=== PATIENT | female | born 1995 | race Caucasian/White ===

== ENCOUNTER 2017-12-04 10:10 | Inpatient (IN) | payer OTHER, MEDICAID, SELFPAY ==
[2017-12-03 14:40] VITALS: BMI 49.8
[2017-12-03 16:09] LABS: Hematocrit 42.7 % (37-47); Hemoglobin 13.7 g/dl (12.0-15.0); Mean Corp Hgb Conc 32.1 g/gl (32-36); Mean Corpuscular Volume 87.1 fL (81-99); Mean Platelet Vol. 9.5 fl (6.2-12.0); Platelet Count 218 K/mm3 (150-450); RBC Distribution Width SD 44.1 fl (35.1-43.9); White Blood Count 10.9 K/mm3 (4.4-11.0)
[2017-12-03 16:12] LABS: Scan Indicated on CBC? Y/N NO
[2017-12-04] VITALS (18 sets, daily range): BP systolic 95–133; BP diastolic 50–82; PULSE 90–110; RESP 14–18; TEMP 36.2–36.8; O2SAT 95–100
[2017-12-04] MEDS: Lactated Ringers 1,000 ML 999 ML IV (10:45)
[2017-12-04] MEDS: 0.9% Saline Lock 10 ML Syringe IV (10:57)
[2017-12-04] MEDS: Lactated Ringers 1,000 ML 150 ML IV (11:32)
[2017-12-04] MEDS: Sodium Citrate/Citric Acid 30 ML UDC PO (12:10)
[2017-12-04] MEDS: Cefazolin 2 GM in 0.9% Normal Saline 100 ML IV (12:18)
--- NOTE | 2017-12-04 12:36 | PLAC_PTH ---
PATIENT: BEE KITCHEN LOC: [facility] U#:[id number] AGE/SX: 22/F ROOM: WP007 RE12/04/[address]: Dr. Dana Swanson MD : [id number] BED: 1 DIS: 12/07/2017 SPEC #: [id number] RECD: 12/04/17 14:37 STATUS: ARMANDO REAbiodun #: [id number] KATIE: 12/04/17 12:[address]: Dana Swanson DEPT: SURGICAL PATHOLOGY RECD BY: Cailin Tolbert ENTERED: 12/05/17 11:06 SP TYPE: PLACENTA OTHR DR: Judi Primary Care Phys Tissues: Placenta, NOS Procedures: Surgery Specimen Level V HEADER OPERATION: Primary section PRE-OP DIAGNOSIS: Placenta previa TISSUE SUBMITTED: Placenta MICROSCOPIC DIAGNOSIS Soni placenta (465 gm): Umbilical cord ? trivascular with no inflammation. Placental membranes ? not present Placental disc ? organizing intraparenchymal hemorrhage, intravascular congestion. AM:bryant 12/08/17 MICROSCOPIC DESCRIPTION Slides are reviewed. GROSS DESCRIPTION SPECIMEN: PLACENTA / CLINICAL INFORMATION: A. Weight: 2.673 kg B. Gestational Age: 37 weeks C. Sex: Female PLACENTAL WEIGHT (POST FIXATION): 465 gm PLACENTAL DIMENSIONS: 16 x 15 x 4 cm PLACENTAL SHAPE: Usual ovoid PLACENTAL WEIGHT FOR GESTATIONAL AGE: Within 10-99th percentile Received is a placenta with placental disc and umbilical cord. No membranes are noted. MEMBRANES ? No membranes are identified attached to the placenta or in the container. UMBILICAL CORD - Present A. Color: Caputo-bravo B. Insertion: Paracentral C. Length: 12 cm D. Diameter: 0.9 cm E. Number of vessels: Three F. Abnormalities: None PLACENTAL DISC - Present A. Color of surface: Caputo-bravo B. surface abnormalities: None C. Maternal cotyledons: Intact with minimal tears. The maternal surface appears to be partly disrupted. D. Attached retro placental clot: No clot E. Cut surface: Dark red and spongy F. Lesions: None G. Separate clot: Absent Membranes cannot be assessed due to disrupted nature of the maternal surface. Sections reveal a caputo-white lesion measuring 1.5 cm in greatest dimension. SECTIONS SUBMITTED: 1. Umbilical cord, end notched 2. Placenta disc, maternal and surface, lesion 3. Placental disc, and maternal surfaces 4. Placental disc, and maternal surfaces 5. Placental disc, and maternal surfaces, disrupted portion of the placenta SJ:bryant 12/05/17 TC:5 CPT: 60426
--- NOTE | 2017-12-04 13:14 | PCM.OB.CSR ---
Delivery Classification: Scheduled Final RAEGAN: 12/25/17 Final RAEGAN Source: US <20 weeks Gestational age: 37 Weeks and 0 Days Indications: Breech, previa Indications for : Breech, Placenta Previa Description of Procedure: The patient was taken to the operating room. She was prepped and draped in the dorsal supine position with a leftward tilt. A Pfannenstiel skin incision was made approximately 2 cm above the symphysis pubis and carried through to underlying layer fascia with the scalpel. The fascia was incised incised in the midline and extended laterally with the Nolen scissors. The fascia was dissected off the rectus muscles with blunt and sharp dissection. The rectus muscles were in the midline and the peritoneum was entered [bluntly]. The peritoneal incision was stretched and the bladder blade was placed. The uterine incision was made in a low transverse fashion with the scalpel and extended superiorly and inferiorly with blunt dissection. The fetus was noted to be vertex but unengaged. The lower uterine segment was not well-developed. When I entered the uterine cavity some blood began to return. I reached along the plane of the placenta to rupture the membranes for clear fluid and brought the vertex to the incision. However it was still not engaged even with fundal pressure. The vacuum was then placed and vacuum suction create a 550 mmHg I pulled once with 1 pop off the vacuum was replaced and pulled a second time with fundal pressure and the head delivered easily. The vacuum was removed. The remainder of the infant was delivered with gentle traction and fundal pressure in the standard fashion. The mouth and nares were bulb suctioned. The cord was clamped and cut as the was stimulated. Cord clamping was not delayed due to the placenta being fractured and starting to expel. The was handed off to the waiting nursing staff. The placenta was delivered with fundal massage and gentle traction in the standard fashion. The uterus was exteriorized and cleared of all clots and debris. [The cervix was dilated with a ring forcep]. The placental bed was very hemostatic and there is only a normal amount of blood loss from the uterus. The uterus was somewhat boggy but this resolved with IV Pitocin and fundal massage. Bleeding was average during the surgery. The uterine incision was closed with #1 Vicryl in a running locked fashion. A second layer of the same suture was used in an imbricating fashion and the incision was examined for hemostasis. The uterus was placed back into the peritoneal cavity and hemostasis was assured. The rectus muscles were examined and any bleeding was Bovie cauterized. [The parietal peritoneum was closed with 3-0 Vicryl suture in a running standard fashion. The rectus muscles were reapproximated with interrupted 0 Vicryl [id number] sutures]. The rectus fascia was examined and the bleeding was Bovie cauterized and the rectus fascia was closed with loop 1 PDS suture in a running standard fashion. The subcutaneous tissue was examining and any bleeding was Bovie cauterized. [The subcutaneous tissue was reapproximated with 3-0 Vicryl suture.] The skin was closed in a subcuticular fashion [by the OUTDOOR STUDIES DIRECTOR with me present in the labor and delivery suite]. All sponge, lap, and needle counts were correct. The patient was taken to her room for recovery in a stable condition. I Performed the entire procedure with assistance Amniotic Membrane Rupture Type: Artificial Amniotic Fluid Description: Clear Placenta Disposition: Sent to Pathology Drain: Kwon to straight drain Fluids Replaced: LR Cord Entanglement: None Cord Vessel Description: 3 Vessels Esitmated Blood Loss (ml): 600 Infant Gender: Female (1 minute): 8 (5 minute): 9 Delayed cord clamping: No Complications: None - Admit VTE Documentation VTE Present on Admission: No VTE Mechan Device Prophylaxis: SCD's VTE Pharm Prophylaxis ordered?: Yes
[2017-12-04] MEDS: Ketorolac 30 MG/ML Syringe IV ×2 (15:38→22:21)
[2017-12-04] MEDS: DiphenhydrAMINE 25 MG Capsule PO (15:38)
[2017-12-04] MEDS: Lactated Ringers 1,000 ML 100 ML IV (18:58)
[2017-12-05] VITALS (10 sets, daily range): BP systolic 117–140; BP diastolic 71–80; PULSE 92–105; RESP 16–18; TEMP 36.3–37.1; O2SAT 96–99
[2017-12-05] MEDS: Ketorolac 30 MG/ML Syringe IV ×4 (04:11→21:58)
[2017-12-05 04:36] LABS: Hematocrit 33.1 % (37-47); Hemoglobin 11.1 g/dl (12.0-15.0); Mean Corp Hgb Conc 33.5 g/gl (32-36); Mean Corpuscular Hgb 28.9 pg (27.0-32.0); Mean Corpuscular Volume 86.2 fL (81-99); Mean Platelet Vol. 8.6 fl (6.2-12.0); Platelet Count 212 K/mm3 (150-450); RBC Distribution Width CV 13.7 % (11.6-14.6); RBC Distribution Width SD 42.1 fl (35.1-43.9); Red Blood Count 3.84 M/mm3 (4.2-5.4); Scan Indicated on CBC? Y/N NO; White Blood Count 11.2 K/mm3 (4.4-11.0)
[2017-12-05] MEDS: Enoxaparin 40 MG/0.4 ML Syringe SC (06:02)
--- NOTE | 2017-12-05 08:42 | PCM.PN.OB ---
Subjective: pain well controlled, average lochia, no N/V - Physical Exam General: Alert, Cooperative, No apparent distress Abdomen: Soft, Non-Distended, Tender - appropriately, - - bandage clean, dry and intact Extremities: Edema - 1+ Vital Signs Temp Pulse Resp BP Pulse Ox 97.4 F L 102 H 16 120/71 97 12/05/17 04:00 12/05/17 06:00 12/05/17 06:00 12/05/17 04:00 12/05/17 06:00 Oxygen Delivery Method Room Air Weight: 138.5 kg Body Mass Index (BMI) 49.8 Intake and Output for Last 24 Hours 12/03/17 12/04/17 12/05/17 23:59 23:59 23:59 Intake Total 2400 / 2400 2467 / 2467 Output Total 950 / 950 1700 / 1700 Balance 1450 / 1450 767 / 767 Laboratory Tests Past 24 Hrs 12/05/17 04:25 WBC 11.2 H RBC 3.84 L Hgb 11.1 L Hct 33.1 L MCV 86.2 MCH 28.9 MCHC 33.5 RDW 13.7 RDW Differential 42.1 Plt Count 212 MPV 8.6 Assessment/Plan POD#1 doing well routine care
[2017-12-05] MEDS: 0.9% Saline Lock 10 ML Syringe IV ×3 (10:40→21:57)
[2017-12-05] MEDS: oxyCODONE 5 MG Tablet PO ×2 (15:40→20:55)
[2017-12-05] MEDS: Senna/Docusate Sodium 1 Tablet PO (15:41)
[2017-12-06 01:35] VITALS: BP 128/83; PULSE 88; RESP 16; TEMP 36.3; O2SAT 98
[2017-12-06] MEDS: Ketorolac 30 MG/ML Syringe IV (04:14)
[2017-12-06] MEDS: 0.9% Saline Lock 10 ML Syringe IV (04:15)
[2017-12-06] MEDS: Enoxaparin 40 MG/0.4 ML Syringe SC (06:45)
[2017-12-06 08:35] VITALS: BP 133/72; PULSE 92; RESP 16; TEMP 36.9; O2SAT 96
--- NOTE | 2017-12-06 09:22 | PCM.PN.OB ---
Subjective: Feels bowels gurgling, no BM - Physical Exam General: Alert, Oriented x3 Abdomen: Soft, Non Tender, Non-Distended - ;ffmid & below umb. incision - bandage c/d/i Extremities: No Calf Tenderness Vital Signs Temp Pulse Resp BP Pulse Ox 98.4 F 92 16 133/72 H 96 12/06/17 08:35 12/06/17 08:35 12/06/17 08:35 12/06/17 08:35 12/06/17 08:35 Oxygen Delivery Method Room Air Weight: 305 lb 5.443 oz Body Mass Index (BMI) 49.8 Intake and Output for Last 24 Hours 12/04/17 12/05/17 12/06/17 23:59 23:59 23:59 Intake Total 2400 / 2400 2467 / 2467 Output Total 950 / 950 2950 / 2950 Balance 1450 / 1450 -483 / -483 Assessment/Plan POD#2 Routine care Miralax for constipation
[2017-12-06] MEDS: Polyethylene Glycol 3350 17 GM PACKET PO (10:06)
[2017-12-06] MEDS: Ibuprofen 600 MG Tablet PO ×2 (10:26→16:57)
[2017-12-06] MEDS: oxyCODONE 5 MG Tablet PO ×3 (10:27→19:14)
[2017-12-06 13:00] VITALS: BP 120/81; PULSE 109; RESP 18; TEMP 37.1; O2SAT 94
[2017-12-06] MEDS: Senna/Docusate Sodium 1 Tablet PO (19:15)
[2017-12-06 20:40] VITALS: BP 139/92; PULSE 92; RESP 18; TEMP 36.8; O2SAT 99
[2017-12-07] MEDS: oxyCODONE 5 MG Tablet PO ×5 (02:33→23:35)
[2017-12-07 02:40] VITALS: BP 132/84; PULSE 94; RESP 18; TEMP 36.1; O2SAT 97
[2017-12-07] MEDS: Enoxaparin 40 MG/0.4 ML Syringe SC (05:56)
[2017-12-07] MEDS: Ibuprofen 600 MG Tablet PO ×3 (05:56→20:12)
[2017-12-07 08:40] VITALS: BP 128/81; PULSE 84; RESP 16; TEMP 36.9; O2SAT 99
--- NOTE | 2017-12-07 09:35 | PCM.PN.OB ---
Subjective: No complaints - Physical Exam General: Alert, Oriented x3 Abdomen: Soft, Non Tender, Non-Distended - ff mid & below umb; incision - bandage c/d/i Extremities: No Calf Tenderness Vital Signs Temp Pulse Resp BP Pulse Ox 98.4 F 84 16 128/81 H 99 12/07/17 08:40 12/07/17 08:40 12/07/17 08:40 12/07/17 08:40 12/07/17 08:40 Oxygen Delivery Method Room Air Weight: 305 lb 5.443 oz Body Mass Index (BMI) 49.8 Intake and Output for Last 24 Hours 12/05/17 12/06/17 12/07/17 23:59 23:59 23:59 Intake Total 2467 / 2467 Output Total 2950 / 2950 Balance -483 / -483 Laboratory Tests Past 24 Hrs 12/03/17 15:55 Crossmatch See Detail Assessment/Plan POD#3 D/c home
--- NOTE | 2017-12-07 09:36 | PCM.DCCSEC ---
Discharge Diet: No Restrictions Discharge Activity: May not drive while taking narcotic pain medications., May Shower May resume sexual activity in: 4-6 weeks Weight Bearing Status: Weight bearing as tolerated Additional Instructions: If you experience any of the following, contact your healthcare provider. Bleeding that soaks a pad every hour for 2 hours Fever 100.4 or higher Unrelieved incision or abdominal pain Swelling, redness, discharge or bleeding from your incision or episiotomy site Your incision begins to separate Problems urinating (including inability to urinate or burning while urinating). Visual changes Severe headache Flu-like symptoms Pain or redness in one of both of your breasts Pain, warmth, tenderness or swelling in your legs, especially the calf area Frequent nausea and vomiting Symptoms of depression or anxiety If you experience any of the following, call 911 or go to the nearest Emergency Room. Chest pain Problems breathing Seizure activity Partial or complete paralysis of a body part, slurred speech, weakness or drooping of the face, or a sudden inability to walk or hold your balance Allergies/Adverse Reactions: Allergies lamotrigine [From Lamictal] Allergy (Verified 11/30/16 19:03) Hives Medications to take at Discharge Vits [Prenatabs FA ] 1 tablet PO DAILY 11/30/16 Oxycodone [Oxyir] 5 mg PO Q6H PRN PRN 7 Days #28 tab 12/07/17 The following prescriptions were given: Oxycodone [Oxyir] 5 mg PO Q6H PRN PRN 7 Days #28 tab PRN Reason: Mod-Severe Pain (-08/12) Follow-Up: Call to make an appointment with your doctor for an incision check in 1-2 weeks. You will also need a 6 week post- follow up appointment. Primary Care Physician: Care Physician,No Primary [Primary Care Provider] -
--- NOTE | 2017-12-07 09:37 | DCINST_ITS ---
Discharge Diet: No Restrictions Discharge Activity: May not drive while taking narcotic pain medications., May Shower May resume sexual activity in: 4-6 weeks Weight Bearing Status: Weight bearing as tolerated Additional Instructions: If you experience any of the following, contact your healthcare provider. * Bleeding that soaks a pad every hour for 2 hours * Fever 100.4 or higher * Unrelieved incision or abdominal pain * Swelling, redness, discharge or bleeding from your incision or episiotomy site * Your incision begins to separate * Problems urinating (including inability to urinate or burning while urinating) . * Visual changes * Severe headache * Flu-like symptoms * Pain or redness in one of both of your breasts * Pain, warmth, tenderness or swelling in your legs, especially the calf area * Frequent nausea and vomiting * Symptoms of depression or anxiety If you experience any of the following, call 911 or go to the nearest Emergency Room. * Chest pain * Problems breathing * Seizure activity * Partial or complete paralysis of a body part, slurred speech, weakness or drooping of the face, or a sudden inability to walk or hold your balance Allergies/Adverse Reactions: Allergies lamotrigine [From Lamictal] Allergy (Verified 11/30/16 19:03) Hives Medications to take at Discharge Vits [Prenatabs FA ] 1 tablet PO DAILY 11/30/16 Oxycodone [Oxyir] 5 mg PO Q6H PRN PRN 7 Days #28 tab 12/07/17 The following prescriptions were given: Oxycodone [Oxyir] 5 mg PO Q6H PRN PRN 7 Days #28 tab PRN Reason: Mod-Severe Pain () Follow-Up: Call to make an appointment with your doctor for an incision check in 1-2 weeks. You will also need a 6 week post- follow up appointment. Primary Care Physician: Care Physician,No Primary [Primary Care Provider] -
--- NOTE | 2017-12-07 09:52 | PCM.DC.SUM ---
Discharge Date and Diagnosis Date of Admission: 12/04/17 Date of Discharge: 12/07/17 Hospital Course and Treatment Summary of Care Provided: The patient is a 22 year old F admitted for primary For detail of surgery please see operative report Hospital course (1) Heme - HDS, post-op cbc normal (2) GI - tolerating regular diet (3) ID - AF, no signs infection (4) D/c home with pain medication & f/u instructions Discharge Diet: No Restrictions Discharge Activity: May not drive while taking narcotic pain medications., May Shower May resume sexual activity in: 4-6 weeks Weight Bearing Status: Weight bearing as tolerated Home Medications: Medications to take at Discharge Vits [Prenatabs FA ] 1 tablet PO DAILY 11/30/16 Oxycodone [Oxyir] 5 mg PO Q6H PRN PRN 7 Days #28 tab 12/07/17 Following Prescrptions Were Given to Patient: Oxycodone [Oxyir] 5 mg PO Q6H PRN PRN 7 Days #28 tab PRN Reason: Mod-Severe Pain (4-08/12) Primary Care Physician: Care Physician,No Primary [Primary Care Provider] - Meaningful Use Info Meaningful Use Diagnoses (Choose all that apply): None applicable
[2017-12-07] MEDS: Polyethylene Glycol 3350 17 GM PACKET PO (11:06)
[2017-12-07 14:25] VITALS: BP 119/56; PULSE 89; RESP 16; TEMP 36.4; O2SAT 97
[2017-12-07 20:14] VITALS: BP 146/80; PULSE 94; RESP 18; TEMP 36.2; O2SAT 98
--- NOTE | 2017-12-07 23:36 | NURSING ---
Mepliex dressing removed per order before discharge. Patient tolerated well and incision dry, intact and without drainage or active bleeding.
[2017-12-09 10:07] LABS: Pathology Specimen OB SEE PATHOLOGY REPORT
== END 2017-12-07 23:35 | disposition home or self-care (01) | DRG 766 ==
PROVIDERS: Obstetrics & Gynecology; Admitting Provider Obstetrics & Gynecology; Visit Provider Obstetrics & Gynecology
DX: O44.03 Complete placenta previa NOS or without hemorrhage, third trimester (principal); O32.1XX0 Maternal care for breech presentation, not applicable or unspecified; Z3A.37 37 weeks gestation of pregnancy; Z37.0 Single live birth; Z79.82 Long term (current) use of aspirin
CPT/HCPCS: 85027; 86850; 86900; 86920; 88307; 94762; 99218; J7120; A4216; G0378; J2405; J3490

== ENCOUNTER 2019-01-15 03:55 | Emergency (ER) | payer OTHER, SELFPAY ==
[2017-12-03 14:40] VITALS: BMI 49.8
[2019-01-15 03:57] VITALS: BP 120/81; PULSE 97; RESP 22; TEMP 36.7; O2SAT 100; BMI 41.8
--- NOTE | 2019-01-15 04:08 | EKG12_ITS ---
Test Reason : SEIZURE Blood Pressure : / mmHG Vent. Rate : 093 BPM Atrial Rate : 093 BPM P-R Int : 176 ms QRS Dur : 078 ms QT Int : 366 ms P-R-T Axes : 016 011 005 degrees QTc Int : 455 ms Normal sinus rhythm Normal ECG Confirmed by TABATHA LIN ([id number]), medical transcription editor FRANCISCO BOYKIN ([id number]) on 01/18/2019 4:46:42 PM Referred By: BRETT Confirmed By:TABATHA LIN
--- NOTE | 2019-01-15 04:08 | ED.VIS.GI ---
History of Present Illness Chief Complaint: Seizure Informant: Patient Narrative: Patient stated that she got up to use the bathroom and she was sitting on the toilet. She felt dizzy and lightheaded. She had a syncopal episode and fell to the floor. Her heard her fall down. He came to the bathroom and tried to revive her. He splashed some cold water on her. She slowly woke up. He stated that she was staring for short period of time in her right arm clenched up for about 5 seconds. There is no postictal state. There is no loss of bowel or bladder function. 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 She has not had a seizure for over 10 years however. She is not taking any medications. She has had a vasovagal episode in the past as well. She did get a significant sunburn today from the tanning bed. She is been having some pain from that. She was not having a bowel movement at the time. She denies any complaints currently. No injury. Past Medical History - Allergies and Home Meds Allergies/Adverse Reactions: Allergies lamotrigine [From Lamictal] Allergy (Verified 01/15/19 03:57) Cat Primary Care Physician: Care Physician,No Primary [Primary Care Provider] - Smoking Status: Never smoker Review of Systems General: Denies: Chills, Fever, Sweats Eyes: Denies: Visual changes - bilaterally, Diplopia ENT: Denies: Rhinorrhea, Sore throat Cardiovascular: Denies: Chest pain, Palpitations Respiratory: Denies: Dyspnea, Cough, Dyspnea on exertion Gastrointestinal: Denies: Abdominal pain, Nausea, Vomiting, Diarrhea, Melena, Hematochezia Genitourinary: Denies: Dysuria, Hematuria, Frequency Musculoskeletal: Denies: Back pain, Extremity Pain Skin: Denies: Rash, Wounds Neurological: Denies: Headache, Weakness, Numbness Physical Exam Vital Signs/Narrative: Vital Signs Temp Pulse Resp BP Pulse Ox 01/15/19 03:57 98.0 F 97 22 H 120/81 H 100 General: Well nourished, Well developed, No Acute Distress Head: Normocephalic, Atraumatic Eyes: Perrl, EOMI ENT: Moist mucous membranes, No rhinorrhea Neck: Supple, Nontender Cardiovascular: Regular rate, Regular rhythm, No murmurs Respiratory: No distress, CTA bilaterally, Chest nontender Abdomen: Soft, Nontender, Nondistended, Normal bowel sounds Back: Nontender, Normal Inspection Extremities: Nontender, No edema Skin: No rash, - - Mild first-degree sunburn from the tanning bed. Negative for: Normal color Neurological: Alert, Oriented x3, Cranial nerves II-XII grossly intact, Normal Strength, Normal Sensation Psychological: Normal affect, Normal Mood Diagnostic/Tx/Re-eval - EKG Initial EKG Interpretation: Sinus Rhythm, No Acute Injury Pattern, Inverted T-Waves - Inferiorly 3 old Prior: Unchanged - Medical Decision Making At this time I think the patient likely had a syncopal episode with mild clonus. She could have had a seizure however. There is no postictal state. She has not been on seizure medications for a long time. Lab work and EKG obtained. Asymptomatic. EKG shows sinus rhythm without any acute ischemia. Old T wave inversion inferiorly 3. No arrhythmia. CBC shows a very slight leukocytosis. I do not think she has any infection or encephalopathy. She is resting comfortably. Electrolytes just show slightly elevated chloride. No other significant electrolyte abnormalities. This could have been a seizure. It could have been syncope with myoclonus she had her right arm come up inclines for 5 seconds. Patient will follow with her neurologist and will be given referral to family doctor. I do not think she needs a CT of her head. Resting comfortably. I do not think she needs to be put on back on seizure medicines from the ER point. At this time I feel she can follow-up. ED Disposition - Plan for ED Patient: Disposition: [facility] Diagnosis: Syncope, Seizure Instructions: ED Seizure Recurrent, What Is Syncope? Referrals: Care Physician,No Primary [Primary Care Provider] - Lonnie Monique DO [NON CLINICAL AFFILIATE] -
[2019-01-15 04:37] LABS: Absolute Lymphocyte Count 1.63 X10^3/ul (0.83-4.51); Absolute Neutrophil Count 9.7 X10^3/uL (2.0-7.7); Basophil# 0.02 X10^3/uL; Basophil% 0.2 % (0-1); Eosinophil# 0.29 X10^3/uL; Eosinophils% 2.3 % (0-5); Hematocrit 38.4 % (37-47); Hemoglobin 12.6 g/dl (12.0-15.0); Lymphocyte # 1.63 X10^3/ul (4.0); Lymphocyte % 13.1 % (19-41); Mean Corp Hgb Conc 32.8 g/gl (32-36); Mean Corpuscular Hgb 27.2 pg (27.0-32.0); Mean Corpuscular Volume 82.8 fL (81-99); Mean Platelet Vol. 9.2 fl (6.2-12.0); Monocyte# 0.77 X10^3/uL; Monocyte% 6.2 % (0-10); Neutrophil # 9.73 X10^3/uL (2.7-7.7); POSITIVE COUNT NO; POSITIVE DIFFERENTIAL NO; POSITIVE MORPHOLOGY NO; Platelet Count 261 K/mm3 (150-450); RBC Distribution Width CV 13.3 % (11.6-14.6); RBC Distribution Width SD 39.6 fl (35.1-43.9); Red Blood Count 4.64 M/mm3 (4.2-5.4); White Blood Count 12.5 K/mm3 (4.4-11.0)
[2019-01-15 04:49] LABS: Anion Gap 9 (5-15); BUN 21 mg/dL (7-18); BUN/Creat Ratio 22.2 RATIO (10-20); Calcium,Total 8.5 mg/dL (8.5-10.1); Chloride 109 mmol/L (98-107); Creatinine, Serum 0.95 mg/dL (0.55-1.02); EST Glomerular Filtration Rate 76 mL/min (>60); Est Glom Filt Rate - Afr Amer 92 mL/min (>60); Estimated Creatinine Clearance 88.03 ml/min; Glucose 141 mg/dL (74-106); Potassium 4.2 mmol/L (3.5-5.1); Sodium Level 140 mmol/L (136-145)
[2019-01-15 05:01] VITALS: BP 110/72; PULSE 97; RESP 14; O2SAT 98
== END 2019-01-15 05:06 | disposition home or self-care (01) ==
PROVIDERS: Emergency Provider Emergency Medicine
DX: R55 Syncope and collapse (principal); G40.909 Epilepsy, unspecified, not intractable, without status epilepticus
CPT/HCPCS: 80048; 85025; 93005; 99283; A4216

== ENCOUNTER → 2023-01-17 | Outpatient (CLI) | payer OTHER, SELFPAY ==
[2023-01-17 15:19] LABS: Hemoglobin A1c 5.3 % (3.8-5.6)
[2023-01-17 15:22] LABS: ALB/GLOB Ratio 0.8 RATIO (0.9-2.4); AST(SGOT) 13 U/L (15-37); Alanine Aminotransfer ALT/SGPT 18 U/L (13-56); Albumin, Serum 3.4 g/dL (3.2-5.0); Alkaline Phosphatase 109 U/L (45-117); Anion Gap 10 (5-15); BUN 14 mg/dL (7-18); Calcium,Total 10.1 mg/dL (8.5-10.1); Chloride 103 mmol/L (98-107); Cholesterol 171 mg/dL (200); Creatinine, Serum 0.82 mg/dL (0.55-1.02); EST Glomerular Filtration Rate 87 mL/min (>60); Est Glom Filt Rate - Afr Amer 106 mL/min (>60); Glucose 78 mg/dL (74-106); High Density Lipoprotein 53 mg/dL; Potassium 4.6 mmol/L (3.5-5.1); Protein, Total 7.4 g/dL (6.4-8.2); Sodium Level 140 mmol/L (136-145); Triglycerides 141 mg/dL; Very Low Density Lipoprotein 28 mg/dL (5-40)
== END | disposition home or self-care (01) ==
PROVIDERS: PCP Family Medicine; Referring Provider Family Medicine; Visit Provider Family Medicine
DX: Z00.00 Encounter for general adult medical examination without abnormal findings (principal); Z68.42 Body mass index [BMI] 45.0-49.9, adult
CPT/HCPCS: 36415; 80053; 80061; 83036

== ENCOUNTER → 2023-02-06 | Outpatient (CLI) | payer OTHER, SELFPAY ==
[2023-02-06 12:27] LABS: Internal QC Validated? YES +Cl - CLEAR BKGD; Pregnancy, Serum, hCG Quali. NEGATIVE Negative
== END | disposition home or self-care (01) ==
LOC: MFPLAB 09:36
PROVIDERS: PCP Family Medicine; Referring Provider Family Medicine; Visit Provider Family Medicine
DX: Z32.00 Encounter for pregnancy test, result unknown (principal)
CPT/HCPCS: 36415; 84703

== ENCOUNTER 2023-09-24 09:01 | Emergency (ER) | payer OTHER, SELFPAY ==
[2023-09-24 09:02] VITALS: BP 134/86; PULSE 125; RESP 14; TEMP 36.2; O2SAT 97; BMI 48.3
[2023-09-24] MEDS: 0.9% Normal Saline (1000mL) 1,000 ML 999 ML IV (09:35)
[2023-09-24 09:37] LABS: Absolute Lymphocyte Count 1.23 X10^3/uL (0.83-4.51); Basophil# 0.04 X10^3/uL; Basophil% 0.2 % (0-1); Eosinophil# 0.01 X10^3/uL; Eosinophils% 0.1 % (0-5); Hemoglobin 12.4 g/dL (12.0-15.0); Lymphocyte # 1.23 X10^3/ul (0.83-4.51); Lymphocyte % 7.6 % (19-41); Mean Corpuscular Hgb 24.9 pg (27.0-32.0); Mean Corpuscular Volume 80.5 fL (81-99); Monocyte# 1.74 X10^3/uL; Monocyte% 10.8 % (0-10); NRBC Flagged by Analyzer 0 % (0-5); Neutrophil # 13.01 X10^3/uL (2.7-7.7); POSITIVE DIFFERENTIAL YES; Platelet Count 297 K/mm3 (150-450); RBC Distribution Width SD 40.8 fl (35.1-43.9); Red Blood Count 4.97 M/mm3 (4.2-5.4); White Blood Count 16.1 K/mm3 (4.4-11.0)
[2023-09-24 09:39] LABS: Differential Indicated SCAN CRITERIA MET
--- NOTE | 2023-09-24 09:48 | CT_ITS ---
STUDY: CT ABDOMEN AND PELVIS WITH CONTRAST REASON FOR EXAM: Female, 27 years old. Right lower quadrant pain RADIATION DOSAGE (If Supplied By Facility): CTDIvol = ( 25.39 ) mGy, DLP = ( 1369.46 ) mGycm TECHNIQUE: Transaxial images were obtained through the abdomen and pelvis without oral contrast. 100 ml of Isovue-370 contrast was administered. Sagittal and coronal images were reconstructed. Individualized dose optimization techniques were used for this CT. COMPARISON: No relevant prior comparison study available FINDINGS: LOWER THORAX: The visualized lung bases are clear. The visualized portions of the heart and pericardium are within normal limits. GALLBLADDER / BILE DUCTS: There are no calcified gallstones present. There is no intrahepatic biliary duct dilatation. The common bile duct is normal in caliber. There are no calcified ductal stones. LIVER: The liver is within normal limits. There are no suspicious hepatic lesions. SPLEEN: The spleen is normal in size. PANCREAS: The pancreas is within normal limits. ADRENAL GLANDS: The adrenal glands are within normal limits. KIDNEYS / BLADDER: There is heterogeneous enhancement in the right kidney which is consistent with right-sided pyelonephritis. There are no renal or ureteral stones. There is no hydronephrosis. There are no focal renal lesions. The urinary bladder is partially distended and appears grossly unremarkable. STOMACH / BOWEL: Normal visualized stomach. There is no bowel obstruction or inflammation. The appendix is visualized and appears normal. PERITONEUM/RETROPERITONEUM: There is no abdominal or pelvic free air, free fluid or fluid collection. There is no abnormal soft tissue mass identified. There is no abdominal or pelvic lymphadenopathy. VESSELS: The aorta is normal in caliber. The IVC is unremarkable. BONES: There are no destructive osseous lesions. SOFT TISSUES: The visualized soft tissues are within normal limits. CT/Abdomen/Pelvis W IV Cont ONLY IMPRESSION: Right-sided pyelonephritis. Normal left kidney. No hydronephrosis. No bowel obstruction or inflammation. Normal appendix. Electronically Signed: Gavin Krishnan MD at 11:39 EST ,
[2023-09-24 09:54] LABS: Anion Gap 8 (5-15); BUN 10 mg/dL (7-18); BUN/Creat Ratio 8.3 RATIO (10-20); Calcium,Total 8.9 mg/dL (8.5-10.1); Chloride 102 mmol/L (98-107); Creatinine, Serum 1.21 mg/dL (0.55-1.02); EST Glomerular Filtration Rate 56 mL/min (>60); Est Glom Filt Rate - Afr Amer 67 mL/min (>60); Estimated Creatinine Clearance 64.22 ml/min; Glucose 117 mg/dL (74-106); Potassium 3.6 mmol/L (3.5-5.1); Sodium Level 132 mmol/L (136-145)
[2023-09-24] MEDS: Ondansetron 4 MG/2 ML Vial IV (09:56)
[2023-09-24] MEDS: Ketorolac 15 MG/ML Vial IV (09:57)
--- NOTE | 2023-09-24 09:59 | EDS_ITS ---
HPI HPI - Female History of Present Illness Chief Complaint: Flank Pain Narrative Narrative: 27-year-old female presenting for evaluation of back pain/abdominal pain. Patient states she started having some bilateral lower back pain on Friday and noted that she had some dysuria and frequency. She was seen by her PCP and put on antibiotic for UTI. She is unsure what the name of it is but she states it is a strong 1. Patient has been on this for 3 days. Her symptoms of dysuria have improved although yesterday she had a fever of 100.9 Fahrenheit and now has more right-sided flank pain/lower abdominal pain. She has had nausea and vomiting. No vaginal complaints. Patient does not believe she is and is on control. No constipation or diarrhea. PFSH PFS Medical History Acute bronchitis, unspecified Home Medications azithromycin 250 mg tablet 250 mg PO QDAY #6 tabs 11/02/22 [Rx Last Taken Unknown] ciprofloxacin HCl 500 mg tablet 500 mg PO BID #14 TABLETS 09/24/23 [Rx Last Taken Unknown] hydrocodone-acetaminophen 5-325mg 5mg-325mg 1 tab PO Q6H 3 days #12 TABLETS 09/24/23 [Rx Last Taken Unknown] ondansetron 4 mg disintegrating tablet 4 mg PO Q8H PRN PRN Nausea #14 tabs 09/24/23 [Rx Last Taken Unknown] Allergy/AdvReac Type Severity Reaction Status Date / Time lamotrigine [From Lamictal] Allergy Hives Verified 09/24/23 09:04 Social History Smoking Status: Never smoker ROS ROS ED Constitutional Constitutional ED: Reports fever(s); Denies chills or sweats Eyes Eyes: Denies blurry vision or change in vision ENT ENT ED: Denies ear pain or sore throat Cardiovascular Cardiovascular: Denies chest pain, palpitations or racing heartbeat Respiratory/Chest Respiratory/Chest: Denies cough, dyspnea or sputum Gastrointestinal Gastrointestinal: Reports abdominal pain, nausea and vomiting; Denies constipation or diarrhea Genitourinary Genitourinary ED: Reports dysuria; Denies hematuria or urinary frequency Musculoskeletal Musculoskeletal: Reports myalgias; Denies arthralgias or neck pain Integumentary Denies abscess, Abrasions or rash Neurologic Neurologic: Denies headache(s), paresthesias or weakness Psychiatric Psychiatric: Denies anxiety, depression, suicidal ideation or suicidal thoughts Endocrine Endocrinology: Denies polydipsia or polyuria EXAM Physical Exam Const Vital Signs: 09/24/23 09:02 09/24/23 12:13 Temperature 97.2 F L Temperature Source Temporal Pulse Rate 125 H 72 Respiratory Rate 14 15 Blood Pressure 134/86 H 124/69 H Blood Pressure Mean 102 87 Pulse Ox 97 98 Oxygen Delivery Method Room Air Room Air Positive well nourished General Appearance ED: Negative for pallor HEENT Reports moist mucous membranes Eyes PERRL and EOMs intact bilaterally Resp normal respiratory effort and clear to auscultation bilaterally Auscultation: Negative for rales, rhonchi or wheezes Cardio regular rhythm Rate: tachycardic GI Palpation: tender RLQ Back/Spine no CVA tenderness Extremity normal to inspection Neuro oriented x3 and CN's II-XII intact bilaterally Sensorium / Orientation: alert Psych mental status grossly normal Skin no rashes or lesions noted General Skin Exam: Negative for jaundice or pallor MDM MDM MDM Narrative Medical decision making narrative: 27-year-old female with right flank pain, fevers, nausea/vomiting. Previous had UTI symptoms but states these have resolved. Differential includes UTI, pyelonephritis, , colitis, diverticulitis, dehydration, electrolyte abnormalities. Patient medicated with morphine, Zofran, IV fluids. Shows leukocytosis of 16.1. Hemoglobin stable at 12.4. Platelets normal to 97. Creatinine is slightly elevated 1.21 today although electrolytes unremarkable. hCG negative. Urinalysis consistent with UTI. This will be sent for culture. Patient found to be on Bactrim which may explain the slight increase in her creatinine today. She will be discontinued. CT of the abdomen pelvis with IV contrast shows pyelonephritis. On the right side. I feel patient is stable for discharge home at this time. She will be placed on Cipro, [place], Zofran. She is instructed to drink plenty of fluids. ED return precautions were discussed. Impression: 1. Pyelonephritis 2. Nausea/vomiting 3. Febrile illness Lab Data Attestation: I reviewed the patient's lab results. Labs: Laboratory Results - last 24 hr 09/24/23 09/24/23 09:27 10:56 WBC 16.1 H RBC 4.97 Hgb 12.4 Hct 40.0 MCV 80.5 L MCH 24.9 L MCHC 31.0 L RDW Std Deviation 40.8 RDW Coeff of Gabriel 14.0 Plt Count 297 MPV 9.0 Immature Gran % (Auto) 0.300 Neut % (Auto) 81.0 H Lymph % (Auto) 7.6 L [place] % (Auto) 10.8 H Eos % (Auto) 0.1 Baso % (Auto) 0.2 Absolute Neuts (auto) 13.0 H Absolute Lymphs (auto) 1.23 Nucleated RBC % 0 Differential Comment COMMENT Diff Path Review May foll Sodium 132 L Potassium 3.6 Chloride 102 Carbon Dioxide 22.0 Anion Gap 8 BUN 10 Creatinine 1.21 H Estim Creat Clear Calc 64.22 Est GFR (MDRD) Af Amer 67 Est GFR (MDRD) Non-Af 56 L BUN/Creatinine Ratio 8.3 L Glucose 117 H Calcium 8.9 Serum , Qual NEGATIVE Urine Color Yellow Urine Clarity Sl. Cloudy Urine pH 6.5 Ur Specific [place] 1.005 Urine Protein 15 H Urine Glucose (UA) Normal Urine Ketones Negative Urine Occult Blood 10 H Urine Nitrite Negative Urine Bilirubin Negative Urine Urobilinogen Normal Ur Leukocyte Esterase 500 H Urine RBC 0-5 SEEN Urine WBC 25-50 SEEN Ur Squamous Epith Cells 0-5 SEEN Urine Bacteria 2+ Urine Mucus 0 SEEN Urine Test Negative Radiography Diagnostic Testing: Clinical Impression(s) from Imaging Studies Abdomen/Pelvis CT 09/24/23 09:48 IMPRESSION: Right-sided pyelonephritis. Normal left kidney. No hydronephrosis. No bowel obstruction or inflammation. Normal appendix. Electronically Signed: Gavin Krishnan MD at 11:39 EST , Discharge Plan Triage Chief Complaint: Flank Pain ED Provider: Sergio Valiente Dx/Rx/DC Orders Instructions: ED Pyelonephritis, Female (Adult) Prescriptions: New ondansetron 4 mg tablet,disintegrating 4 mg PO Q8H PRN PRN (Reason: Nausea) Qty: 14 0RF ciprofloxacin HCl 500 mg tablet 500 mg PO BID Qty: 14 0RF hydrocodone-acetaminophen 5-325 mg tablet 1 tab PO Q6H 3 Days Qty: 12 0RF No Action azithromycin 250 mg tablet 250 mg PO QDAY Qty: 6 0RF Rx Instructions: 2 tablets today, then 1 tablet daily on days 2 through 5 Primary Care Provider: Ananya Fernandes Referrals: Ananya Fernandes, DO [Primary Care Provider] - Disposition Disposition: Home, Self Care
[2023-09-24 11:06] LABS: Internal QC Validated? YES +Cl - CLEAR BKGD; Pregnancy, Serum, hCG Quali. NEGATIVE Negative
[2023-09-24 11:22] LABS: Mucous, Urine 0 SEEN /hpf (<or=2+)
[2023-09-24 11:37] LABS: Bacteria 2+ /hpf (None Seen); Color, Urine Yellow (Yellow); Glucose, Dipstick Normal (Normal); Internal QC Validated? YES +Cl - CLEAR BKGD; Ketone-Dipstick Negative (Negative); Leukocyte Esterase-Dipstick 500 /ul (Negative); Nitrite-Dipstick Negative (Negative); Occult Blood-Urine 10 /ul (Negative); Pregnancy, Urine Negative Negative; Protein-Dipstick 15 mg/dl (Negative); Red Blood Cells-Urine 0-5 SEEN /hpf (0-5); Specific Gravity, Urine 1.005 (1.002-1.030); Squamous Epithelial Cells - UA 0-5 SEEN /hpf (5-10); Urine Bilirubin Dipstick Negative (Negative); Urine Clarity Sl. Cloudy (Clear); Urine Urobilinogen Normal (Normal); Urine pH 6.5 (5.0 - 8.0); White Blood Cells 25-50 SEEN /hpf (0-5)
[2023-09-24 12:13] VITALS: BP 124/69; PULSE 72; RESP 15; O2SAT 98
[2023-09-24] MEDS: Ciprofloxacin 500 MG Tablet PO (12:25)
[2023-09-24 12:34] VITALS: BP 129/82; PULSE 76; RESP 15; O2SAT 95
[2023-09-26 14:24] LABS: Pathologist Review Reviewed
== END 2023-09-24 12:35 | disposition home or self-care (01) ==
PROVIDERS: Emergency Provider Student in an Organized Health Care Education/Training Program; PCP Family Medicine; Visit Provider Student in an Organized Health Care Education/Training Program
DX: N12 Tubulo-interstitial nephritis, not specified as acute or chronic (principal); R11.2 Nausea with vomiting, unspecified; R50.9 Fever, unspecified
CPT/HCPCS: 74177; 80048; 81001; 81025; 84703; 85025; 87077; 87086; 87088; 87186; 96361; 96374; 96375; 99283; J7030; Q9967; A4216; J2405